=== PATIENT | female | born 1980 | race Caucasian/White ===

== ENCOUNTER → 2017-09-16 | Outpatient (CLI) | payer MEDICAID | LOC: CIMAGING 10:46 | PROVIDERS: ATTEND Internal Medicine Pulmonary Disease | DX: R91.1 Solitary pulmonary nodule (principal) | CPT/HCPCS: 71250-PO ==

== ENCOUNTER 2019-05-04 20:28 | Emergency (ER) | payer OTHER, MEDICAID | END 2019-05-04 21:33 | disposition home or self-care (01) | LOC: CED 20:28 ==